=== PATIENT | male | born 1985 | race Caucasian/White ===

== ENCOUNTER → 2016-10-09 | Outpatient (CLI) | payer OTHER ==
--- NOTE | 2016-10-09 10:09 | DIAGNOSTIC IMAGING REPORT ---
RIGHT TIBIA AND FIBULA 2 VIEWS CLINICAL HISTORY: Right leg pain. FINDINGS: AP and lateral views of the right tibia and fibula are correlated with radiograph of the right knee dated 11/06/2015. The skeletal structures are well mineralized. No fracture is seen in the right tibia or fibula. The knee and ankle joints appear preserved. Mild soft tissue swelling is present distally. IMPRESSION: Mild soft tissue swelling with no acute bony abnormality seen in the right tibia or fibula. Electronically signed by: Kenn Gallardo M.D. 10/09/2016 10:08 AM Dictated Date/Time: 10/09/2016 10:07 AM
== END | disposition home or self-care (01) ==
LOC: C.RAD1850 09:56
PROVIDERS: ATTEND Family Medicine
DX: S89.91XA Unspecified injury of right lower leg, initial encounter (principal); X58.XXXA Exposure to other specified factors, initial encounter

== ENCOUNTER → 2016-11-04 | Outpatient (CLI) | payer OTHER | END | disposition home or self-care (01) | LOC: C.RDSM 12:50 | PROVIDERS: ATTEND Family Medicine | DX: M79.645 Pain in left finger(s) (principal) ==

== ENCOUNTER → 2016-11-12 | Outpatient (CLI) | payer OTHER ==
[~2016-11-12] MED LIST: GADAVIST IV PRN
--- NOTE | 2016-11-12 10:09 | DIAGNOSTIC IMAGING REPORT ---
MRI left LEFT UPPER EXT JOINT COMBO CLINICAL HISTORY: LEFT THUMB PAIN AND MASS dominant mass TECHNIQUE: Multi axial acquisition pre and postcontrast administration COMPARISON STUDY: None FINDINGS: Minimal degenerative changes of the articular services throughout. No evidence for bone marrow replacing process. Particular attention is patent to the distal phalanx of thumb where there is a clinically palpable subcutaneous nodule per patient no significant abnormality by MRI criteria. Clinical small focus of fibrous tissue or per minute sebaceous cyst although this is equivocal in terms of diagnostic reliability. It is not reproducible on all planes. No significant postcontrast enhancement. All major ligamentous and tendinous structures are intact. Abnormalities. IMPRESSION: 1. Nodular density, if present, is not well seen by MRI. 2. No evidence for an enhancing lesion. 3. One sequence suggests a small focus of fibrous tissue, but this is not replicated on all images. 4. Minimal scattered degenerative change of the articular services Electronically signed by: Shaquille Dickey M.D. 11/12/2016 10:08 AM Dictated Date/Time: 11/12/2016 9:55 AM
== END | disposition home or self-care (01) ==
LOC: C.MRIBC 08:23
PROVIDERS: ATTEND Family Medicine
DX: M79.645 Pain in left finger(s) (principal); R22.32 Localized swelling, mass and lump, left upper limb

== ENCOUNTER → 2017-02-10 | Outpatient (CLI) | payer OTHER | LOC: C.RDSM 16:01 | PROVIDERS: ATTEND Physical Medicine & Rehabilitation Sports Medicine | DX: G56.01 Carpal tunnel syndrome, right upper limb (principal) ==

== ENCOUNTER → 2017-11-25 | Day surgery (SDC) | payer OTHER ==
[2017-11-18 07:36] VITALS: Ht 180.3 cm; Wt 113.6 kg
[~2017-11-25] VITALS: Ht 180.3 cm; Wt 113.6 kg
[~2017-11-25] MED LIST changes: +ATROPINE SULFATE 0.1 MG/ML 5ML SYR IV PRN; +BUPIVACAINE/EPINEPHRINE 0.5% MPF 1:200,000 30 ML VIAL ONE; +CEFAZOLIN 2000MG IV PUSH 15 ML IV SCH; +EpHEDrine SULFATE INJ 50 MG/ML AMP IV PRN; +FENTANYL CITRATE INJ 50 MCG/1 ML 2 ML VIAL IV PRN; +FENTANYL CITRATE INJ 50 MCG/1 ML 2 ML VIAL ONE; -GADAVIST IV PRN; +HYDR-5688 PO; +LACTATED RINGER'S 1000ML 1,000 ML IV SCH; +LIDOCAINE/EPINEPHRINE 1% 20 ML VIAL ONE; +MIDAZOLAM HCL 1 MG/ML 2ML VIAL ONE; +MoRPHine SULFATE 2 MG/ML CARP IV PRN; +MoRPHine SULFATE 4 MG/ML 1 ML CARP\\VIAL IV PRN; +NAPR1TAB9 PO; +ONDANSETRON INJ 2 MG/ML 2 ML VIAL IV PRN; +OXYCODONE/ACETAMINOPHEN 5-325 TAB PO PRN; +PROPOFOL IV EMULSION 10 MG/ML 20 ML VIAL IV ONE; +SILD1TAB39 PO; +SODIUM CHLORIDE 0.9% 1000ML 1,000 ML IV SCH
--- NOTE | 2017-11-25 08:08 | History & Physical Bridge Note ---
H&P Re-Evaluation Bridge Note: I have examined the patient, reviewed the History & Physical and in the interval since the performance of the History & Physical I have noted the following changes of clinical significance: No changes noted
--- NOTE | 2017-11-25 08:45 | [facility] Post Operative Brief Note ---
Immediate Operative Summary Operative Date Nov 25, 2017. Pre-Operative Diagnosis Right carpal tunnel syndrome Post-Operative Diagnosis Same as pre-op Procedure(s) Performed Right Carpal Tunnel Release Surgeon Frame Bander Surgeon(s) Charlene ARAIZA Estimated Blood Loss 0 mL Findings Consistent with Post-Op Diagnosis Specimens None Drains None Anesthesia Type MAC Complication(s) none Disposition Accompanied Pt To Recovery: no Disposition: Recovery Room / PACU
[2017-11-25 08:57] VITALS: TEMP 36.5
--- NOTE | 2017-11-25 09:00 | Discharge Instructions-SurgCtr ---
Discharge Instructions Date of Service Nov 25, 2017. Visit Reason for Visit: Right Carpal Tunnel Syndrome Discharge Discharge Diagnosis / Problem: Right carpal tunnel syndrome Discharge Goals Goal(s): Decrease discomfort, Improve function, Increase independence Activity Recommendations Activity Limitations: per Instructions/Follow-up section Weightbearing Status: Right non-weightbearing (right hand) Anesthesia . Post Anesthesia Instructions: If you have had General Anesthesia or IV Sedation: * Do not drive today. * Resume driving when surgeon permits. * Do not make important decisions or sign legal documents today. * Call surgeon for: 1. Temperature elevations greater than 101 degrees F. 2. Uncontrollable pain. 3. Excessive bleeding. 4. Persistent nausea and vomiting. 5. Medication intolerance (nausea, vomiting or rash). * For nausea and vomiting use only clear liquids such as: tea, soda, bouillon until nausea subsides, then gradually increase diet as tolerated. * If you have any concerns or questions, call your surgeon's office. If physician is unavailable and it is an emergency, call 911 or go to the nearest emergency room. . Instructions / Follow-Up Instructions / Follow-Up The following are instructions to follow after minor hand surgery. ACTIVITY RECOMMENDATIONS: * Minimize activity until your first visit after surgery. * No excessive walking, jogging, sports or laboring. * Return to activity is individualized. Most patients are able to return to everyday activities within 2 weeks. * Return to sports or intensive labor usually occurs at 1-2 months. * DRIVING: Driving may be resumed when you feel you have adequate pain control and use of the hand. * BATHING: You may shower or sponge-bathe immediately after surgery. The dressing will need to be covered with a plastic bag or plastic wrap until the dressing is changed on the fourth or fifth day after surgery. Once the dressing has been changed on the fourth or fifth day after surgery, you may shower and get the incision wet. * Wash with regular soap and water. * Do not bathe (submerge the incision), soak, swim or use a hot tub until the incision is completely healed over with normal skin and the doctor has given the OK to proceed. * There is no need to apply any ointments, powders or salves to your incision. * Do not apply alcohol or hydrogen peroxide directly to the incision. Diluted peroxide (50:50 mixture with sterile saline) may be used to clean dried blood from around the incision area. WORK/SCHOOL: * You may return to sedentary work or school when you are feeling comfortable. This is usually 3-7 days after surgery. * Expect increased discomfort with increased activity. Continue to elevate and ice the hand as much as possible. DIET: * Resume previous diet. MEDICATIONS: * You will have a prescription for pain medication and an anti-inflammatory medication after surgery. Use the pain pills for severe pain and the anti-inflammatory for less severe pain. * Once the pain pills have run out, try to use the anti-inflammatory. If this is not effective then contact the office for assistance. * The pain medication may cause nausea, constipation and sleepiness. You should see how they affect you before driving or similar activity. * The anti-inflammatory may cause stomach upset and bleeding. If this occurs, let your doctor know immediately . * Some patients may need blood clot prevention. This can be done with either a pill or a simple shot. Your doctor will advise you on when to begin these medications and how to take them. * Do not take aspirin or other anti-inflammatory products (i.e. Advil or Aleve ) if taking blood thinner medication. * Take a stool softener like Colace or a stimulant like Senokot to prevent constipation. SPECIAL CARE INSTRUCTIONS: ICE: * Do not apply ice directly to the skin. * Use a thin dressing or stockinet between the skin and ice bag. The dressing in place after surgery will suffice. * Apply ice for 20-30 minutes and repeat every 2-4 hours. This is especially important for the first 3-7 days after surgery. * Once the pain improves, use ice as needed. ELEVATION: * Keep your hand elevated at or above the level of your heart as much as possible. * Expect some increased discomfort and swelling if you allow your hand to hang down for any length of time. DRESSING: * Your dressing will be changed 4-5 days after surgery by the physical therapist or physician's medical assistant. Leave your dressing intact until this time. * You may then change your dressing daily with clean dry gauze or Band-aids and a soft wrap or stockinet. * Always wash your hands prior to touching the incision area. * Once the stitches are removed, you may leave the wound open to air or cover with a thin bandage. * There is no need to apply any ointments, powders or salves to your incision. * Expect some bloody drainage for the first few days after surgery. * Leave the tape strips in place (if present) for 5-7 days. * The initial dressing after surgery may become soaked with blood or fluid which is normal. You may reinforce your dressing with clean, dry gauze as needed. BRACE: * Bracing is generally not needed after routine hand surgery. THERAPY: * Physical therapy may be prescribed after your surgery. * For carpal tunnel and trigger digit surgery you may begin moving your fingers and wrist immediately after surgery as tolerated. * Be careful to not overuse. * Once the sutures are removed, further range of motion exercises can be performed. * Hand incisions may be very sensitive for a few months after surgery so avoid excessive pressure on the incision. If necessary, use a padded weightlifters' glove. * You may massage the incision with skin cream to make it less sensitive and reduce scarring. * Hand strength usually returns with normal use. * If needed, squeezing a soft sponge or Play-dough may help. * Your doctor will recommend physical therapy if necessary. PROBLEMS/QUESTIONS: * If you have any problems such as severe pain, numbness, tingling or high fevers or if you have any questions, please contact the office at [phone]. * It is not uncommon to have some numbness and tingling after the surgery especially if you have had a nerve block done. This should gradually improve over the first 1- 2 days. If this persists longer or worsens then contact the office. FOLLOW UP VISIT: * If not already scheduled, please call the office at to schedule follow-up appointments for approximately 10 days, 6 weeks and 3 months after surgery. * You have a physical therapy appointment on 11/29/17 at 10:30 a.m. * You have a follow up appointment on 12/10/17 at 9:00 a.m. Diet Recommendations Home Diet: no limitations, resume previous diet Procedures Procedures Performed: Right Carpal Tunnel Release Pending Studies Studies pending at discharge: no Medical Emergencies . Who to Call and When: Medical Emergencies: If at any time you feel your situation is an emergency, please call 911 immediately. . Non-Emergent Contact Non-Emergency issues call your: Surgeon Call Non-Emergent contact if: temperature is above 101, your pain is not controlled, your pain is worsening, wound has increased drainage, wound has increased redness, wound has increased pain, you have any medication questions . . "Provider Documentation" section prepared by Sepideh Carlson. . [place] Drug Monitoring Program Search Results: patient reviewed within database, no issues identified
--- NOTE | 2017-11-25 09:04 | [facility] Operative Report ---
Operative Report Operative Date Nov 25, 2017. Pre-Operative Diagnosis Right carpal tunnel syndrome Post-Operative Diagnosis Same as pre-op Procedure(s) Performed Right Carpal Tunnel Release Surgeon Account Officer Surgeon(s) Charlene ARAIZA Estimated Blood Loss 0 mL Findings None Specimens None Anesthesia Local with IV sedation Complication(s) None Disposition Recovery Room / PACU Indications Patient's a 32-year-old male with right carpal tunnel syndrome refractory to nonsurgical methods of management. Description of Procedure Informed consent was obtained. The patient was identified as Leonard Stoddard. The patient identified the operative site as the right wrist which I marked with my initials. A preoperative surgical timeout was performed. A preop dose of IV antibiotics was given. The patient was positioned supine on the hospital stretcher with the right arm suspended on a hand table. A tourniquet was applied to the arm. The limb was prepped and draped in the usual sterile fashion. The examination under anesthesia was unremarkable. DVT prophylaxis was not indicated. The limb was exsanguinated with the Esmarch and the tourniquet was inflated to 225 mmHg. A midline longitudinal incision was made beginning at Boswell's cardinal line. The incision stopped just short of the distal transverse wrist crease. Blunt dissection was performed down through the subcutaneous tissues and through the superficial palmar fascia. The transverse carpal ligament was identified and divided in line with the incision up into distal forearm fascia under direct visualization. A wide decompression was obtained. The contents of the carpal canal tendons median nerve and tenosynovium appeared to be normal. The wound was copiously irrigated with sterile saline and then closed with 4-0 nylon horizontal mattress stitches. A soft sterile dressing was applied. The incision was extended obliquely to the level of the distal wrist crease. Blunt dissection was performed down to the subcutaneous tissues. The patient had a thick palm with a tight proximal carpal tunnel. The superficial fascia was divided. The distal forearm fascia was noted to be prominent and the proximal carpal tunnel and distal forearm fascia were released under direct visualization. This yielded a wide decompression. The tourniquet was let down after 15 minutes of inflation. The patient was awakened from anesthesia without difficulty and taken to the recovery room in stable condition. There were no specimens or complications. Counts were correct at the end of the case. Blood loss was minimal. At the conclusion of the operation spoke to the patient's family and informed them of my findings. Detailed postoperative instructions were given. The patient will be rehabilitated according to the carpal tunnel protocol. I attest to the content of the Intraoperative Record and any orders documented therein. Any exceptions are noted below.
--- NOTE | 2017-11-25 09:04 | [facility] Operative Report ---
Operative Report Operative Date Nov 25, 2017. Pre-Operative Diagnosis Right carpal tunnel syndrome Post-Operative Diagnosis Same as pre-op Procedure(s) Performed Right Carpal Tunnel Release Surgeon Conveyor Belt Operator Surgeon(s) Sepideh Carlson PA-C Estimated Blood Loss 0 mL Specimens None Drains None Anesthesia Type MAC Complication(s) none Disposition no Recovery Room / PACU Indications Patient is a 32-year-old male with complaints of paresthesias right hand. He has failed conservative treatment which has consisted of corticosteroid injections and physical therapy and bracing. X-rays were negative for any bony abnormality. Surgical intervention was discussed. He wished to proceed with surgery. EMG showed severe right carpal tunnel syndrome. Risks and complications of surgery were explained to the patient and informed consent was obtained. Description of Procedure Patient was taken to the operating room and placed under IV sedation. Was given 2 g of IV Ancef for surgical prophylaxis. A local anesthetic was performed on his right carpal tunnel. He was prepped and draped in routine sterile fashion. Timeout was performed. I was present during the entire case, please see Dr. Palacio's operative report for further detail. He was awakened and transferred to recovery room in stable condition. I attest to the content of the Intraoperative Record and any orders documented therein. Any exceptions are noted below.
[2017-11-25 09:21] VITALS: BP 119/70; PULSE 58; O2SAT 97
--- NOTE | 2017-11-25 09:59 | Anesthesiology Progress Note ---
Anesthesia Post Op Note Date & Time Nov 25, 2017 at 09:58 Vital Signs Pain Intensity: 0 Vital Signs Past 12 Hours Date Time Temp Pulse Resp B/P (MAP) Pulse Ox O2 Delivery O2 Flow Rate FiO2 11/25/17 09:21 58 18 119/70 (86) 97 11/25/17 08:57 36.5 53 18 107/63 (78) 94 Room Air 11/25/17 07:40 36.9 69 20 137/96 (110) 97 Room Air Notes Mental Status: alert / awake / arousable, participated in evaluation Pt Amnestic to Procedure: Yes Nausea / Vomiting: adequately controlled Pain: adequately controlled Airway Patency, RR, SpO2: stable & adequate BP & HR: stable & adequate Hydration State: stable & adequate Anesthetic Complications: no major complications apparent
== END | disposition home or self-care (01) ==
LOC: X.SURG 07:30
PROVIDERS: ATTEND Physical Medicine & Rehabilitation Sports Medicine
DX: G56.01 Carpal tunnel syndrome, right upper limb (principal); E66.9 Obesity, unspecified; N52.9 Male erectile dysfunction, unspecified; Z68.35 Body mass index [BMI] 35.0-35.9, adult